=== PATIENT | female | born 1965 | race Two or more races ===

== ENCOUNTER 2019-01-28 10:04 | Emergency (ER) | payer OTHER ==
[2019-01-28 10:37] VITALS: BP 104/61; RESP 20; TEMP 98.2
[2019-01-28] MEDS ORDERED: IPRATROPIUM-ALBUTEROL 3 ML NEB INHALATION STA (11:08)
[2019-01-28] MEDS ORDERED: SODIUM CHLORIDE 0.9% 1,000 ML IV STA ×2 (11:08)
[2019-01-28] MEDS ORDERED: methylPREDNISolone SOD SUCCI 125 MG/2 ML VIAL IV STA (11:08)
--- NOTE | 2019-01-28 11:11 | ED ---
SOB HPI - General Chief Complaint: Shortness of Breath Stated Complaint: JAM Time Seen by Provider: 01/28/19 10:46 Source: patient, RN notes reviewed, old records reviewed Mode of arrival: wheelchair Limitations: no limitations - History of Present Illness Initial Comments: Patient is a 54-year-old female who presents emergency Department today with complaints of difficulty in breathing worsening cough over the past 4 days. She has history of COPD stage III. She sees a adult services librarian and misti stiles. Patient states that she's from [facility]. She is here visiting her father. Patient reports that she's had fever and chills earlier in the week. Her last hospitalization for COPD exacerbation was last year. She's not been on any recent antibiotics or steroid. Patient states that she's been using her breathing treatments and nebulizers at home with little relief. Patient states that she is a current smoker and does smoke approximately 1-2 packs a week.Patient denies any recent fever, chills, chest pain, back pain, abdominal pain, nausea vomiting, numbness or tingling, dysuria or hematuria, constipation or diarrhea, headaches or visual changes, or any other current symptoms - Related Data Home Medications Medication Instructions Recorded Confirmed ARIPiprazole [Abilify] 10 mg PO DAILY 01/28/19 01/28/19 Atorvastatin [Lipitor] 10 mg PO HS 01/28/19 01/28/19 Levothyroxine Sodium [Levoxyl] 175 mcg PO DAILY 01/28/19 01/28/19 Mirtazapine [Remeron] 7.5 mg PO HS 01/28/19 01/28/19 OXcarbazepine [Trileptal] 150 mg PO TID 01/28/19 01/28/19 QUEtiapine [SEROquel] 50 mg PO HS 01/28/19 01/28/19 Sertraline [Zoloft] 100 mg PO DAILY 01/28/19 01/28/19 Previous Rx's Medication Instructions Recorded Azithromycin [Zithromax Z-pack] 250 mg PO DIRECTED #6 tab 01/28/19 Ipratropium-Albuterol Nebulize 3 ml INHALATION QID #30 neb 01/28/19 [Duoneb 0.5 mg-3 mg/3 ml Soln] Promethazine/Dextromethorphan 5 ml PO TID #120 ml 01/28/19 [Phenergan DM Syrup] predniSONE 50 mg PO DAILY #7 tablet 01/28/19 Allergies Allergy/AdvReac Type Severity Reaction Status Date / Time No Known Allergies Allergy Verified 01/28/19 11:18 Review of Systems ROS Statement: Those systems with pertinent positive or pertinent negative responses have been documented in the HPI. ROS Other: All systems not noted in ROS Statement are negative. Past Medical History Past Medical History: Asthma, COPD, Hyperlipidemia, Thyroid Disorder Additional Past Medical History / Comment(s): EMPHYSEMA History of Any Multi-Drug Resistant Organisms: None Reported Past Surgical History: Section, Orthopedic Surgery Additional Past Surgical History / Comment(s): THYROIDECTOMY Past Psychological History: Bipolar, Schizoaffective Disorder Smoking Status: Current every day smoker Past Alcohol Use History: None Reported Past Drug Use History: Marijuana General Exam - General Exam Comments Initial Comments: 54-year-old female. Alert and oriented 3. Patient appears in no significant distress. Limitations: no limitations General appearance: alert, in no apparent distress Head exam: Present: atraumatic, normocephalic, normal inspection Eye exam: Present: normal appearance, PERRL, EOMI. Absent: scleral icterus, conjunctival injection, periorbital swelling ENT exam: Present: normal exam, mucous membranes moist Neck exam: Absent: normal inspection, tenderness, meningismus, lymphadenopathy Respiratory exam: Present: wheezes. Absent: normal lung sounds bilaterally, respiratory distress, rales, rhonchi, stridor Cardiovascular Exam: Present: regular rate, normal rhythm, normal heart sounds. Absent: systolic murmur, diastolic murmur, rubs, gallop, clicks GI/Abdominal exam: Present: soft, normal bowel sounds. Absent: distended, tenderness, guarding, rebound, rigid Extremities exam: Present: normal inspection, full ROM, normal capillary refill. Absent: tenderness, pedal edema, joint swelling, calf tenderness Back exam: Present: normal inspection Neurological exam: Present: alert, oriented X3, CN II-XII intact Psychiatric exam: Present: normal affect, normal mood Skin exam: Present: warm, dry, intact, normal color. Absent: rash Course Vital Signs 01/28/19 01/28/19 01/28/19 10:34 11:13 11:25 Temperature 98.2 F Pulse Rate 73 71 70 Respiratory 20 Rate Blood Pressure 104/61 O2 Sat by Pulse 96 Oximetry Medical Decision Making - Medical Decision Making Patient is a 54-year-old female presents today with cough congestion 4 days. She has a history of COPD. She rested much more with acute COPD exacerbation. Wheezing noted on all lung kirk. She is given double DuoNeb treatment. Some IV steroids and given a gram of Rocephin. At this time patient's chest x-ray is normal. Lab work is otherwise unremarkable. EKG is shows no acute changes. Patient at this time will be treated for acute exacerbation discharged with steroids and azithromycin. Discussed close follow-up with PCP. - Lab Data Result diagrams: 01/28/19 11:48 01/28/19 11:48 Lab Results 01/28/19 01/28/19 01/28/19 Range/Units 11:48 11:48 11:48 WBC 5.2 (3.8-10.6) k/uL RBC 4.09 (3.80-5.40) m/uL Hgb 12.9 (11.4-16.0) gm/dL Hct 38.6 (34.0-46.0) % MCV 94.4 (80.0-100.0) fL MCH 31.5 (25.0-35.0) pg MCHC 33.4 (31.0-37.0) g/dL RDW 13.2 (11.5-15.5) % Plt Count 167 (150-450) k/uL Neutrophils % 63 % Lymphocytes % 25 % Monocytes % 7 % Eosinophils % 1 % Basophils % 1 % Neutrophils # 3.3 (1.3-7.7) k/uL Lymphocytes # 1.3 (1.0-4.8) k/uL Monocytes # 0.4 (0-1.0) k/uL Eosinophils # 0.1 (0-0.7) k/uL Basophils # 0.0 (0-0.2) k/uL PT 10.2 (9.0-12.0) sec INR 0.9 (<1.2) APTT 23.6 (22.0-30.0) sec Sodium 134 L (137-145) mmol/L Potassium 3.4 L (3.5-5.1) mmol/L Chloride 99 (98-107) mmol/L Carbon Dioxide 27 (22-30) mmol/L Anion Gap 8 mmol/L BUN 6 L (7-17) mg/dL Creatinine 0.62 (0.52-1.04) mg/dL Est GFR (CKD-EPI)AfAm >90 (>60 ml/min/1.73 sqM) Est GFR (CKD-EPI)NonAf >90 (>60 ml/min/1.73 sqM) Glucose 116 H (74-99) mg/dL Calcium 9.0 (8.4-10.2) mg/dL Magnesium 1.7 (1.6-2.3) mg/dL Total Bilirubin 0.5 (0.2-1.3) mg/dL AST 21 (14-36) U/L ALT 31 (9-52) U/L Alkaline Phosphatase 87 (38-126) U/L Total Protein 6.6 (6.3-8.2) g/dL Albumin 3.8 (3.5-5.0) g/dL 01/28/19 12:40EKG shows sinus rhythm with sinus arrhythmia, low voltage QRS. A low borderline EKG. Ventricularly of 82 bpm TX interval is 146 ms. QRS ration 72 ms. QT QTC 394/460 ms. - Radiology Data Radiology results: report reviewed EKG shows sinus rhythm with sinus arrhythmia, low voltage QRS. A low borderline EKG. Ventricularly of 82 bpm TX interval is 146 ms. QRS ration 72 ms. QT QTC 394/460 ms. Nose T process chest x-rays negative for any acute process. Prominent lung volumes suggests COPD. Evidence of probable posterior right ninth and O fifth rib fractures with healing. Disposition Clinical Impression: COPD exacerbation Disposition: HOME SELF-CARE Condition: Good Instructions (If sedation given, give patient instructions): Bronchospasm (ED) Additional Instructions: Patient advised to use inhalers as directed. Use nebulizer treatments as well. Follow-up with your primary care physician. Take the antibiotic and steroid as prescribed. Return to emergency department if any alarming signs or symptoms occur. Prescriptions: Azithromycin [Zithromax Z-pack] 250 mg PO DIRECTED #6 tab Ipratropium-Albuterol Nebulize [Duoneb 0.5 mg-3 mg/3 ml Soln] 3 ml INHALATION QID #30 neb predniSONE 50 mg PO DAILY #7 tablet Promethazine/Dextromethorphan [Phenergan DM Syrup] 5 ml PO TID #120 ml Is patient prescribed a controlled substance at d/c from ED?: No Referrals: Jairo Desouza MD [Primary Care Provider] - 1-2 days Time of Disposition: 12:43
[2019-01-28 12:08] LABS: Basophils % (A) 1 %; Eosinophils # (A) 0.1 k/uL (0-0.7); Eosinophils % (A) 1 %; HCT 38.6 % (34.0-46.0); HGB 12.9 gm/dL (11.4-16.0); Lymphocytes # (A) 1.3 k/uL (1.0-4.8); Lymphocytes % (A) 25 %; MCH 31.5 pg (25.0-35.0); MCHC 33.4 g/dL (31.0-37.0); MCV 94.4 fL (80.0-100.0); Mean Platelet Volume 7.6; Monocytes # (A) 0.4 k/uL (0-1.0); Monocytes % (A) 7 %; Neutrophils # (A) 3.3 k/uL (1.3-7.7); Neutrophils % (A) 63 %; Platelet Count 167 k/uL (150-450); RBC 4.09 m/uL (3.80-5.40); RDW 13.2 % (11.5-15.5); WBC 5.2 k/uL (3.8-10.6)
[2019-01-28 12:11] LABS: INR 0.9 (<1.2); Partial Thromboplastin Time 23.6 sec (22.0-30.0); Prothrombin Time 10.2 sec (9.0-12.0)
--- NOTE | 2019-01-28 12:12 | XR ---
EXAMINATION TYPE: XR chest 2V DATE OF EXAM: 01/28/2019 COMPARISON: NONE HISTORY: Difficulty breathing, shortness of breath TECHNIQUE: Frontal and lateral views of the chest are obtained. FINDINGS: There is no focal air space opacity, pleural effusion, or pneumothorax seen. The cardiac silhouette size is within normal limits. There are prominent lung volumes suggesting underlying COPD . The osseous structures are remarkable for probable posterior right ninth and 10th, left fifth rib f ractures with healing. IMPRESSION: No acute cardiopulmonary process.
[2019-01-28 12:13] LABS: ALT 31 U/L (9-52); AST 21 U/L (14-36); Albumin 3.8 g/dL (3.5-5.0); Alkaline Phosphatase 87 U/L (38-126); Anion Gap 8 mmol/L; Blood Urea Nitrogen 6 mg/dL (7-17); Carbon Dioxide 27 mmol/L (22-30); Chloride 99 mmol/L (98-107); Glucose 116 mg/dL (74-99); Magnesium 1.7 mg/dL (1.6-2.3); Potassium 3.4 mmol/L (3.5-5.1); Sodium 134 mmol/L (137-145); Total Bilirubin 0.5 mg/dL (0.2-1.3); Total Protein 6.6 g/dL (6.3-8.2)
[2019-01-28 12:19] VITALS: PULSE 70
[2019-01-28] MEDS ORDERED: PROMETHAZ-COD 6.25-10 MG/5 ML 5 ML CUP PO STA (12:42)
== END 2019-01-28 13:21 | disposition home or self-care (01) ==
LOC: EC 10:04
DX: J44.1 Chronic obstructive pulmonary disease with (acute) exacerbation (principal); I49.8 Other specified cardiac arrhythmias; E78.5 Hyperlipidemia, unspecified; E07.9 Disorder of thyroid, unspecified; F31.9 Bipolar disorder, unspecified; F25.9 Schizoaffective disorder, unspecified; F17.210 Nicotine dependence, cigarettes, uncomplicated; Z79.890 Hormone replacement therapy; Z79.899 Other long term (current) drug therapy
CPT/HCPCS: 99285; 96365; 96375; 96361; 36415; 94640; 93005; 80053; 83735; 85025; 85610; 85730; 71046; J2930; J0696

== ENCOUNTER 2019-01-31 13:40 | Emergency (ER) | payer OTHER ==
[2019-01-31 13:45] VITALS: TEMP 97.8
[2019-01-31] MEDS ORDERED: methylPREDNISolone SOD SUCCI 125 MG/2 ML VIAL IV STA (14:03)
[2019-01-31] MEDS ORDERED: IPRATROPIUM-ALBUTEROL 3 ML NEB INHALATION STA (14:03)
[2019-01-31] MEDS ORDERED: SODIUM CHLORIDE 0.9% 1,000 ML IV STA ×2 (14:03)
--- NOTE | 2019-01-31 14:05 | ED ---
URI HPI - General Chief Complaint: Upper Respiratory Infection Stated Complaint: Sob Time Seen by Provider: 01/31/19 13:50 Source: patient, RN notes reviewed, old records reviewed Mode of arrival: ambulatory Limitations: no limitations - History of Present Illness Initial Comments: Patient is a 54-year-old female presenting to the emergency department today with complaints of worsening difficulty breathing. I saw this Patient 3 days ago for complaints of COPD exacerbation. She was discharged at that time with steroids and antibiotics. She reports she has 1 day left of medications. Patient states that she has had worsening cough at night. She denies any other symptoms. - Related Data Home Medications Medication Instructions Recorded Confirmed ARIPiprazole [Abilify] 10 mg PO DAILY 01/28/19 01/28/19 Atorvastatin [Lipitor] 10 mg PO HS 01/28/19 01/28/19 Levothyroxine Sodium [Levoxyl] 175 mcg PO DAILY 01/28/19 01/28/19 Mirtazapine [Remeron] 7.5 mg PO HS 01/28/19 01/28/19 OXcarbazepine [Trileptal] 150 mg PO TID 01/28/19 01/28/19 QUEtiapine [SEROquel] 50 mg PO HS 01/28/19 01/28/19 Sertraline [Zoloft] 100 mg PO DAILY 01/28/19 01/28/19 Previous Rx's Medication Instructions Recorded Azithromycin [Zithromax Z-pack] 250 mg PO DIRECTED #6 tab 01/28/19 Ipratropium-Albuterol Nebulize 3 ml INHALATION QID #30 neb 01/28/19 [Duoneb 0.5 mg-3 mg/3 ml Soln] Promethazine/Dextromethorphan 5 ml PO TID #120 ml 01/28/19 [Phenergan DM Syrup] predniSONE 50 mg PO DAILY #7 tablet 01/28/19 Ipratropium-Albuterol Nebulize 3 ml INHALATION QID #20 neb 01/31/19 [Duoneb 0.5 mg-3 mg/3 ml Soln] Promethazine/Dextromethorphan 5 ml PO TID #120 ml 01/31/19 [Phenergan DM Syrup] predniSONE 50 mg PO DAILY #5 tablet 01/31/19 Allergies Allergy/AdvReac Type Severity Reaction Status Date / Time No Known Allergies Allergy Verified 01/31/19 13:43 Review of Systems ROS Statement: Those systems with pertinent positive or pertinent negative responses have been documented in the HPI. ROS Other: All systems not noted in ROS Statement are negative. Past Medical History Past Medical History: Asthma, COPD, Hyperlipidemia, Thyroid Disorder Additional Past Medical History / Comment(s): EMPHYSEMA History of Any Multi-Drug Resistant Organisms: None Reported Past Surgical History: Section, Orthopedic Surgery Additional Past Surgical History / Comment(s): THYROIDECTOMY Past Psychological History: Bipolar, Schizoaffective Disorder Smoking Status: Current every day smoker Past Alcohol Use History: None Reported Past Drug Use History: Marijuana General Exam - General Exam Comments Initial Comments: 54 year old female, no distress. Limitations: no limitations General appearance: alert, in no apparent distress Head exam: Present: atraumatic, normocephalic, normal inspection Eye exam: Present: normal appearance, PERRL, EOMI. Absent: scleral icterus, conjunctival injection, periorbital swelling ENT exam: Present: normal exam, mucous membranes moist Neck exam: Present: normal inspection. Absent: tenderness, meningismus, lymphadenopathy Respiratory exam: Present: normal lung sounds bilaterally, other (minimal wheezing, improved from previous visit. ). Absent: respiratory distress, wheezes, rales, rhonchi, stridor Cardiovascular Exam: Present: regular rate, normal rhythm, normal heart sounds. Absent: systolic murmur, diastolic murmur, rubs, gallop, clicks GI/Abdominal exam: Present: soft, normal bowel sounds. Absent: distended, tenderness, guarding, rebound, rigid Extremities exam: Present: normal inspection, full ROM, normal capillary refill. Absent: tenderness, pedal edema, joint swelling, calf tenderness Back exam: Present: normal inspection Neurological exam: Present: alert, oriented X3, CN II-XII intact Psychiatric exam: Present: normal affect, normal mood Skin exam: Present: warm, dry, intact, normal color. Absent: rash Course Vital Signs 01/31/19 01/31/19 01/31/19 13:43 14:12 14:21 Temperature 97.8 F Pulse Rate 80 83 87 Respiratory 18 Rate Blood Pressure 111/70 O2 Sat by Pulse 92 L Oximetry 01/31/19 01/31/19 14:29 15:18 Temperature Pulse Rate 67 Respiratory 20 18 Rate Blood Pressure 106/74 O2 Sat by Pulse 97 Oximetry Medical Decision Making - Medical Decision Making 54 year old female presents with cough. She was recently treated for COPD with 4 days of Azithromycin, and steroids. She is much improved from previous visit, Pulse Ox 98 percent on Room air. She states she is out of cough syrup and one more day of Azithromycin. Labs today are unremarkable. She was givne douneb for minimal wheezing. She has stable CXR. Discussed normal vital signs and clinical improcement patient can finish treatment outpatiently with steriods and breathing treatment. Will write for more cough syrup. Discussed close follow up with PCP. - Lab Data Result diagrams: 01/31/19 14:25 01/31/19 14:25 Lab Results 01/31/19 01/31/19 01/31/19 Range/Units 14:25 14:25 14:25 WBC 8.2 (3.8-10.6) k/uL RBC 4.03 (3.80-5.40) m/uL Hgb 12.7 (11.4-16.0) gm/dL Hct 37.7 (34.0-46.0) % MCV 93.7 (80.0-100.0) fL MCH 31.6 (25.0-35.0) pg MCHC 33.7 (31.0-37.0) g/dL RDW 13.3 (11.5-15.5) % Plt Count 230 (150-450) k/uL Neutrophils % 57 % Lymphocytes % 30 % Monocytes % 7 % Eosinophils % 1 % Basophils % 0 % Neutrophils # 4.7 (1.3-7.7) k/uL Lymphocytes # 2.5 (1.0-4.8) k/uL Monocytes # 0.6 (0-1.0) k/uL Eosinophils # 0.1 (0-0.7) k/uL Basophils # 0.0 (0-0.2) k/uL PT 10.4 (9.0-12.0) sec INR 1.0 (<1.2) APTT 19.7 L (22.0-30.0) sec Sodium 135 L (137-145) mmol/L Potassium 3.5 (3.5-5.1) mmol/L Chloride 100 (98-107) mmol/L Carbon Dioxide 27 (22-30) mmol/L Anion Gap 8 mmol/L BUN 6 L (7-17) mg/dL Creatinine 0.60 (0.52-1.04) mg/dL Est GFR (CKD-EPI)AfAm >90 (>60 ml/min/1.73 sqM) Est GFR (CKD-EPI)NonAf >90 (>60 ml/min/1.73 sqM) Glucose 94 (74-99) mg/dL Calcium 9.2 (8.4-10.2) mg/dL Total Bilirubin 0.5 (0.2-1.3) mg/dL AST 25 (14-36) U/L ALT 31 (9-52) U/L Alkaline Phosphatase 77 (38-126) U/L Total Protein 6.6 (6.3-8.2) g/dL Albumin 3.7 (3.5-5.0) g/dL 01/31/19 14:45 EKG shows normal sinus rhythm. Ventricular rate 66 bpm. MN interval 124 ms. QRS duration is 74 ms. QT QTc is 432/452 ms. - Radiology Data Radiology results: report reviewed COPD, no acute cardiopulmonar changes. No changes from previous XR. Disposition Clinical Impression: COPD exacerbation Disposition: HOME SELF-CARE Condition: Good Instructions (If sedation given, give patient instructions): Chronic Bronchitis (ED) Additional Instructions: Patient advised of close follow-up with pulmonology and primary care physician. Return to the emergency department if any alarming signs or symptoms occur. Prescriptions: Ipratropium-Albuterol Nebulize [Duoneb 0.5 mg-3 mg/3 ml Soln] 3 ml INHALATION QID #20 neb predniSONE 50 mg PO DAILY #5 tablet Promethazine/Dextromethorphan [Phenergan DM Syrup] 5 ml PO TID #120 ml Is patient prescribed a controlled substance at d/c from ED?: No Referrals: Jairo Desouza MD [Primary Care Provider] - 1-2 days Time of Disposition: 15:43
--- NOTE | 2019-01-31 14:53 | XR ---
EXAMINATION TYPE: XR chest 2V DATE OF EXAM: 01/31/2019 COMPARISON: 01/28/2019 HISTORY: Cough TECHNIQUE: Frontal and lateral views of the chest are obtained. FINDINGS: Heart and mediastinum are normal. There is pulmonary hyperinflation and slight flattening of the diaphragm. There are no hilar masses. Bony thorax is intact. There is old right-sided healed r ib fractures. IMPRESSION: COPD. No active cardiopulmonary disease. No change.
[2019-01-31 15:01] LABS: ALT 31 U/L (9-52); AST 25 U/L (14-36); Albumin 3.7 g/dL (3.5-5.0); Alkaline Phosphatase 77 U/L (38-126); Anion Gap 8 mmol/L; Blood Urea Nitrogen 6 mg/dL (7-17); Calcium 9.2 mg/dL (8.4-10.2); Carbon Dioxide 27 mmol/L (22-30); Chloride 100 mmol/L (98-107); Glucose 94 mg/dL (74-99); Sodium 135 mmol/L (137-145); Total Bilirubin 0.5 mg/dL (0.2-1.3); Total Protein 6.6 g/dL (6.3-8.2)
[2019-01-31 15:05] LABS: Potassium 3.5 mmol/L (3.5-5.1)
[2019-01-31] MEDS ORDERED: PROMETHAZ-COD 6.25-10 MG/5 ML 5 ML CUP PO STA (15:13)
[2019-01-31 15:20] VITALS: BP 106/74; PULSE 67; RESP 18
[2019-01-31 15:26] LABS: Basophils % (A) 0 %; Eosinophils # (A) 0.1 k/uL (0-0.7); Eosinophils % (A) 1 %; HCT 37.7 % (34.0-46.0); HGB 12.7 gm/dL (11.4-16.0); Lymphocytes # (A) 2.5 k/uL (1.0-4.8); Lymphocytes % (A) 30 %; MCH 31.6 pg (25.0-35.0); MCHC 33.7 g/dL (31.0-37.0); MCV 93.7 fL (80.0-100.0); Mean Platelet Volume 7.8; Monocytes # (A) 0.6 k/uL (0-1.0); Monocytes % (A) 7 %; Neutrophils # (A) 4.7 k/uL (1.3-7.7); Neutrophils % (A) 57 %; Platelet Count 230 k/uL (150-450); RBC 4.03 m/uL (3.80-5.40); RDW 13.3 % (11.5-15.5); WBC 8.2 k/uL (3.8-10.6)
[2019-01-31 15:42] LABS: Partial Thromboplastin Time 19.7 sec (22.0-30.0); Prothrombin Time 10.4 sec (9.0-12.0)
== END 2019-01-31 15:54 | disposition home or self-care (01) ==
LOC: EC 13:40
DX: J44.1 Chronic obstructive pulmonary disease with (acute) exacerbation (principal); E78.5 Hyperlipidemia, unspecified; E07.9 Disorder of thyroid, unspecified; F31.9 Bipolar disorder, unspecified; F25.9 Schizoaffective disorder, unspecified; F17.200 Nicotine dependence, unspecified, uncomplicated; Z79.890 Hormone replacement therapy; Z79.899 Other long term (current) drug therapy
CPT/HCPCS: 36415; 94640; 93005; 80053; 85025; 85610; 85730; 71046; 99285; 96374; 96361; J2930

== ENCOUNTER → 2019-08-26 | Outpatient (CLI) | payer OTHER ==
--- NOTE | 2019-08-26 11:56 | XR ---
EXAMINATION TYPE: XR chest 2V DATE OF EXAM: 08/26/2019 COMPARISON: 01/31/2019 HISTORY: COPD. TECHNIQUE: Frontal and lateral views of the chest are obtained. FINDINGS: There is no focal air space opacity, pleural effusion, or pneumothorax seen. Pulmonary hyp erinflation and flattening of the diaphragms are seen with chronic pleural reaction at the costophren ic angles. The cardiac silhouette size is within normal limits. No acute osseous pathology. [place] right rib fractures are noted. IMPRESSION: No acute cardiopulmonary process. Redemonstration of sequela of COPD.
== END | disposition home or self-care (01) ==
LOC: RADXRMAIN 10:54
PROVIDERS: ATTEND Family Medicine
DX: J44.9 Chronic obstructive pulmonary disease, unspecified (principal)
CPT/HCPCS: 71046

== ENCOUNTER 2020-04-04 10:19 | Observation (INO) | payer OTHER ==
[2020-04-04] MEDS ORDERED: methylPREDNISolone SOD SUCCI 125 MG/2 ML VIAL IV STA (12:38)
[2020-04-04] MEDS ORDERED: IPRATROPIUM-ALBUTEROL 3 ML NEB INHALATION PRN (12:38)
[2020-04-04 13:09] LABS: Basophils # (A) 0.1 k/uL (0-0.2); Basophils % (A) 1 %; Eosinophils # (A) 0.1 k/uL (0-0.7); Eosinophils % (A) 2 %; HCT 39.7 % (34.0-46.0); HGB 13.1 gm/dL (11.4-16.0); Lymphocytes # (A) 1.7 k/uL (1.0-4.8); Lymphocytes % (A) 33 %; Mean Platelet Volume 7.1; Monocytes # (A) 0.2 k/uL (0-1.0); Monocytes % (A) 4 %; Neutrophils # (A) 2.9 k/uL (1.3-7.7); Neutrophils % (A) 57 %; Platelet Count 215 k/uL (150-450); RBC 3.97 m/uL (3.80-5.40); RDW 13.2 % (11.5-15.5)
[2020-04-04 14:22] LABS: Basophils # (A) 0.1 k/uL (0-0.2); Basophils % (A) 2 %; Eosinophils # (A) 0.1 k/uL (0-0.7); Eosinophils % (A) 2 %; HCT 37.4 % (34.0-46.0); HGB 12.1 gm/dL (11.4-16.0); Lymphocytes # (A) 1.8 k/uL (1.0-4.8); Lymphocytes % (A) 33 %; MCH 32.3 pg (25.0-35.0); MCHC 32.4 g/dL (31.0-37.0); MCV 99.6 fL (80.0-100.0); Mean Platelet Volume 7.2; Monocytes # (A) 0.3 k/uL (0-1.0); Monocytes % (A) 5 %; Neutrophils # (A) 2.9 k/uL (1.3-7.7); Neutrophils % (A) 56 %; Platelet Count 206 k/uL (150-450); RBC 3.76 m/uL (3.80-5.40); RDW 13.1 % (11.5-15.5); WBC 5.3 k/uL (3.8-10.6)
--- NOTE | 2020-04-04 14:29 | P.CNPUL ---
History of Present Illness Consult date: 04/04/20 Reason for consult: dyspnea, cough, COPD Chief complaint: Shortness of breath and cough progressive for the last 10 days History of present illness: This is a 55-year-old female with the past medical history of COPD, patient is still smoking a quarter to half pack per day, she has extensive history of smoking and nicotine use in the past, she has also problems associated with depression and mood disorder chronic pain syndrome and hypothyroidism for last 10 days she is having increasing shortness of breath and dry nonproductive cough with that she has been evaluated by primary care provider due to nonresponse of treatment on outpatient basis patient has been admitted into the hospital she has IV steroids along with bronchodilators and oral antibiotics as started, labs and chest x-rays are pending, she has prior history of thyroidectomy and chronic hoarseness afterwards Review of Systems All systems: negative Past Medical History Past Medical History: Asthma, COPD, Hyperlipidemia, Thyroid Disorder Additional Past Medical History / Comment(s): EMPHYSEMA History of Any Multi-Drug Resistant Organisms: None Reported Past Surgical History: Section, Orthopedic Surgery Additional Past Surgical History / Comment(s): THYROIDECTOMY Past Anesthesia/Blood Transfusion Reactions: No Reported Reaction Past Psychological History: Bipolar, Schizoaffective Disorder Smoking Status: Current every day smoker Past Alcohol Use History: None Reported Past Drug Use History: Marijuana - Past Family History Father Family Medical History: No Reported History Medications and Allergies Home Medications Medication Instructions Recorded Confirmed Type ARIPiprazole [Abilify] 10 mg PO DAILY 01/28/19 01/28/19 History Atorvastatin [Lipitor] 10 mg PO HS 01/28/19 01/28/19 History Azithromycin [Zithromax Z-pack] 250 mg PO DIRECTED #6 tab 01/28/19 Rx Ipratropium-Albuterol Nebulize 3 ml INHALATION QID #30 neb 01/28/19 Rx [Duoneb 0.5 mg-3 mg/3 ml Soln] Levothyroxine Sodium [Levoxyl] 175 mcg PO DAILY 01/28/19 01/28/19 History Mirtazapine [Remeron] 7.5 mg PO HS 01/28/19 01/28/19 History OXcarbazepine [Trileptal] 150 mg PO TID 01/28/19 01/28/19 History Promethazine/Dextromethorphan 5 ml PO TID #120 ml 01/28/19 Rx [Phenergan DM Syrup] QUEtiapine [SEROquel] 50 mg PO HS 01/28/19 01/28/19 History Sertraline [Zoloft] 100 mg PO DAILY 01/28/19 01/28/19 History predniSONE 50 mg PO DAILY #7 tablet 01/28/19 Rx Ipratropium-Albuterol Nebulize 3 ml INHALATION QID #20 neb 01/31/19 Rx [Duoneb 0.5 mg-3 mg/3 ml Soln] Promethazine/Dextromethorphan 5 ml PO TID #120 ml 01/31/19 Rx [Phenergan DM Syrup] predniSONE 50 mg PO DAILY #5 tablet 01/31/19 Rx Allergies Allergy/AdvReac Type Severity Reaction Status Date / Time No Known Allergies Allergy Verified 01/31/19 13:43 Physical Exam Vitals: Vital Signs Temp Pulse Resp BP Pulse Ox 04/04/20 12:52 98.0 F 78 18 95/63 96 04/04/20 12:20 18 Intake and Output 04/03/20 04/04/20 04/04/20 22:59 06:59 14:59 Other: Weight 42.836 kg - Constitutional General appearance: average body habitus, cooperative, disheveled - EENT Eyes: EOMI, PERRLA ENT: hearing grossly normal Ears: bilateral: normal - Neck Neck: normal ROM Carotids: bilateral: upstroke normal Thyroid: bilateral: normal size - Respiratory Respiratory: bilateral: diminished, wheezing (Fine on fours expiration) - Cardiovascular Rhythm: regular Heart sounds: normal: S1, S2 - Gastrointestinal General gastrointestinal: normal bowel sounds - Integumentary Integumentary: normal - Neurologic Neurologic: CNII-XII intact - Musculoskeletal Musculoskeletal: gait normal, generalized weakness, strength equal bilaterally - Psychiatric Psychiatric: A&O x's 3, appropriate affect, intact judgment & insight Results - Laboratory Findings CBC and BMP: 04/04/20 14:08 Abnormal lab findings: Abnormal Labs 04/04/20 14:08 RBC 3.76 L - Diagnostic Findings Chest x-ray: pending Assessment and Plan Assessment: Acute COPD exacerbation Tracheobronchitis Hypothyroidism Dyslipidemia Major depression Generalized anxiety disorder Plan: Agree with bronchodilators and steroids, once x-rays done and we'll review it patient has been consult educated about smoking cessation further recommendati ons pending plan of care as per clinical response of patient Time with Patient: Greater than 30
[2020-04-04 14:37] LABS: ALT 17 U/L (4-34); AST 21 U/L (14-36); African American GFR (CKD) >90 (>60 ml/min/1.73 sqM); Alkaline Phosphatase 64 U/L (38-126); Anion Gap 8 mmol/L; Blood Urea Nitrogen 8 mg/dL (7-17); Calcium 8.9 mg/dL (8.4-10.2); Carbon Dioxide 28 mmol/L (22-30); Chloride 94 mmol/L (98-107); Glucose 115 mg/dL (74-99); Non-African American GFR(CKD) >90 (>60 ml/min/1.73 sqM); Potassium 3.7 mmol/L (3.5-5.1); Sodium 130 mmol/L (137-145); Total Bilirubin 0.3 mg/dL (0.2-1.3); Total Protein 6.4 g/dL (6.3-8.2)
--- NOTE | 2020-04-04 15:12 | XR ---
EXAMINATION TYPE: XR chest 2V DATE OF EXAM: 04/04/2020 COMPARISON: Chest x-ray August 26, 2019 and older x-rays. HISTORY: COPD exacerbation and cough. TECHNIQUE: Frontal and lateral views of the chest are obtained. FINDINGS: Perhaps mild underlying emphysematous change redemonstrated. There is no focal air space op acity, pleural effusion, or pneumothorax seen. The cardiac silhouette size is within normal limits. The osseous structures are intact. IMPRESSION: No new acute pulmonary process. No significant change from prior studies.
[2020-04-04] MEDS: PANTOPRAZOLE 40 MG/10 ML VIAL IVP SCH (15:25)
[2020-04-04] MEDS: AZITHROMYCIN 500 MG in SODIUM CHLORIDE 0.9% 250 ML IVPB SCH (15:26)
[2020-04-04] MEDS: SODIUM CHLORIDE 0.9% 1,000 ML IV SCH (15:26)
[2020-04-04] MEDS: IPRATROPIUM-ALBUTEROL 3 ML NEB INHALATION SCH ×2 (16:18→19:50)
[2020-04-04] MEDS: INSULIN ASPART (NovoLOG) 100 UNIT/ML VIAL SQ SCH ×2 (18:09→20:54)
[2020-04-04] MEDS: methylPREDNISolone SOD SUCCI 125 MG/2 ML VIAL IV SCH (18:13)
[2020-04-04] MEDS: NICOTINE 21MG/24HR PATCH TRANSDERM SCH (18:13)
[2020-04-04] MEDS: SYMBICORT 160-4.5 MCG INHALER INHALATION SCH (19:50)
[2020-04-04 20:24] VITALS: TEMP 97.5
[2020-04-04 20:33] LABS: Glucose,Whole Blood 150 mg/dL (75-99)
[2020-04-04] MEDS ORDERED: ALPRAZolam 0.5 MG TAB PO PRN (20:50)
[2020-04-04] MEDS ORDERED: MIRTAZAPINE 15 MG TAB PO SCH (21:00)
[2020-04-04] MEDS ORDERED: QUEtiapine 50 MG TAB PO SCH (21:00)
[2020-04-04] MEDS ORDERED: traZODone HCL 50 MG TAB PO SCH (21:00)
[2020-04-04] MEDS: GABAPENTIN 300 MG CAP PO SCH (21:41)
[2020-04-04] MEDS: OXcarbazepine 150 MG TAB PO SCH (21:46)
[2020-04-05] MEDS: methylPREDNISolone SOD SUCCI 125 MG/2 ML VIAL IV SCH ×2 (00:15→05:18)
[2020-04-05] MEDS ORDERED: ACETAMINOPHEN TAB 325 MG TAB PO STA (03:04)
[2020-04-05] MEDS: SYMBICORT 160-4.5 MCG INHALER INHALATION SCH ×2 (03:41→09:08)
[2020-04-05] MEDS: SODIUM CHLORIDE 0.9% 1,000 ML IV SCH (05:20)
[2020-04-05 06:55] LABS: Glucose,Whole Blood 184 mg/dL (75-99)
[2020-04-05] MEDS ORDERED: ALBUTEROL HFA INHALER INHALATION PRN (07:10)
[2020-04-05 07:25] LABS: ALT 19 U/L (4-34); AST 22 U/L (14-36); African American GFR (CKD) >90 (>60 ml/min/1.73 sqM); Alkaline Phosphatase 63 U/L (38-126); Anion Gap 8 mmol/L; Basophils % (A) 0 %; Blood Urea Nitrogen 8 mg/dL (7-17); Calcium 9.1 mg/dL (8.4-10.2); Carbon Dioxide 28 mmol/L (22-30); Chloride 94 mmol/L (98-107); Eosinophils % (A) 0 %; Glucose 175 mg/dL (74-99); HCT 40.2 % (34.0-46.0); HGB 12.5 gm/dL (11.4-16.0); Lymphocytes # (A) 0.6 k/uL (1.0-4.8); Lymphocytes % (A) 13 %; MCH 31.2 pg (25.0-35.0); MCHC 31.2 g/dL (31.0-37.0); MCV 99.8 fL (80.0-100.0); Mean Platelet Volume 7.5; Monocytes # (A) 0.1 k/uL (0-1.0); Monocytes % (A) 2 %; Neutrophils # (A) 4.1 k/uL (1.3-7.7); Neutrophils % (A) 85 %; Non-African American GFR(CKD) >90 (>60 ml/min/1.73 sqM); Platelet Count 215 k/uL (150-450); Potassium 4.7 mmol/L (3.5-5.1); RBC 4.02 m/uL (3.80-5.40); RDW 13.1 % (11.5-15.5); Sodium 130 mmol/L (137-145); Total Bilirubin 0.2 mg/dL (0.2-1.3); Total Protein 6.6 g/dL (6.3-8.2); WBC 4.8 k/uL (3.8-10.6)
[2020-04-05] MEDS: INSULIN ASPART (NovoLOG) 100 UNIT/ML VIAL SQ SCH ×2 (07:27→15:21)
[2020-04-05] MEDS ORDERED: ALBUTEROL SULFATE INHALATION SCH (08:00)
[2020-04-05] MEDS ORDERED: SYMBICORT 160-4.5 MCG INHALER INHALATION SCH (08:00)
[2020-04-05] MEDS: GABAPENTIN 300 MG CAP PO SCH (08:05)
[2020-04-05] MEDS: NICOTINE 21MG/24HR PATCH TRANSDERM SCH (08:05)
[2020-04-05] MEDS: PANTOPRAZOLE 40 MG/10 ML VIAL IVP SCH (08:05)
[2020-04-05] MEDS: OXcarbazepine 150 MG TAB PO SCH (08:06)
[2020-04-05] MEDS ORDERED: ALPRAZolam 0.5 MG TAB PO PRN (08:16)
[2020-04-05 08:35] VITALS: BP 118/72; RESP 17
[2020-04-05] MEDS: AZITHROMYCIN 500 MG in SODIUM CHLORIDE 0.9% 250 ML IVPB SCH (08:50)
[2020-04-05] MEDS ORDERED: LEVOTHYROXINE 75 MCG TAB PO SCH (09:00)
[2020-04-05] MEDS ORDERED: ARIPiprazole 10 MG TAB PO SCH (09:00)
[2020-04-05] MEDS ORDERED: SERTRALINE 100 MG TAB PO SCH (09:00)
[2020-04-05] MEDS: IPRATROPIUM-ALBUTEROL 3 ML NEB INHALATION SCH ×2 (09:08→12:05)
--- NOTE | 2020-04-05 09:18 | HP ---
HISTORY AND PHYSICAL A 55-year-old white female, history of COPD, smoking a pack a day. Came in with cough, congestion, shortness of breath, severe nonproductive cough. Response to treatment outpatient admitted for asthma exacerbation. A 14-point review of systems is negative. History of asthma, COPD, hypothyroidism, dyslipidemia. Surgery, , orthopedic surgery, thyroidectomy. Bipolar, schizoaffective. Current everyday smoker and marijuana. FAMILY HISTORY: See list. ALLERGIES: Negative. HOME MEDICINES: Duo-Neb, , azithromycin, Lipitor, Abilify, Remeron, Trileptal, Zoloft, Seroquel. A 14-point review of systems as mentioned above, negative except for mentioned in HPI, saturation low 90s on room on room air. Blood pressure is 95/63, temp 98, pulse 78. HEENT: She looks slightly disheveled. Pupils equal, round, reactive. NECK: Supple. LUNGS: Show scattered wheeze and rhonchi x4. CARDIAC: S1-S2. GI: Soft. INTEGUMENT: Normal. NEUROLOGIC: Cranial nerves are intact. MUSCULOSKELETAL: Fair range of motion. PSYCH: Fair mood and affect. ASSESSMENT: 1. Acute chronic obstructive pulmonary disease exacerbation, tracheobronchitis. 2. Hypothyroidism. 3. Dyslipidemia. 4. Major depression, bipolar, anxiety. PLAN: Updrafts, IV steroids. Smoking cessation. Pulmonary consult. MMLYNNL / VINNIE: [id number] /
[2020-04-05 10:50] VITALS: BMI 16.5
[2020-04-05 12:18] VITALS: PULSE 78
[2020-04-05 12:55] LABS: Glucose,Whole Blood 160 mg/dL (75-99)
--- NOTE | 2020-04-05 13:03 | P.DS ---
Providers Date of admission: 04/04/20 11:51 Expected date of discharge: 04/05/20 Attending physician: Jairo Desouza Consults: 04/04/20 13:55 Consult Physician Routine Consulting Provider: Richard Palomino Consult Reason/Comments: copd Do you want consulting provider notified?: Yes [facility] Course: Final Diagnoses: Acute COPD exacerbation Tracheobronchitis Hypothyroidism Dyslipidemia Major depression Generalized anxiety disorder Hospital course: This a 55-year-old female admitted with acute COPD exacerbation, tracheobronchitis, ongoing nicotine dependence and multiple other medical issues. Maintained on IV antibiotics, nebulized bronchodilators, IV steroids. Significant clinical improvement. Cleared by pulmonary for discharge. Patient is being discharged home in a stable condition with current prognosis. The impression and plan of care has been dictated as directed. : I performed a history and examination of this patient, discussed the same with the dictator. I agree with the dictator's note ,documented as a scribe. Any additional findings or plans will be noted. Patient Condition at Discharge: Stable Plan - Discharge Summary Discharge Rx Participant: No New Discharge Prescriptions: New Nicotine 21Mg/24Hr Patch [Habitrol] 1 patch TRANSDERM DAILY #30 patch predniSONE 10 mg PO DIRECTED #30 tab Azithromycin [Zithromax] 500 mg PO DAILY 5 Days #5 tab Continue QUEtiapine [SEROquel] 50 mg PO HS OXcarbazepine [Trileptal] 150 mg PO TID Mirtazapine [Remeron] 7.5 mg PO HS Atorvastatin [Lipitor] 10 mg PO HS Sertraline [Zoloft] 100 mg PO DAILY ARIPiprazole [Abilify] 10 mg PO DAILY ALPRAZolam [Xanax] 0.5 mg PO HS PRN PRN Reason: Anxiety Albuterol Inhaler [Ventolin Hfa Inhaler] 2 puff INHALATION RT-BID PRN PRN Reason: Shortness Of Breath Gabapentin 600 mg PO TID Ergocalciferol [Vitamin D2 (DRISDOL)] 50,000 unit PO Q30D traZODone HCL 150 mg PO HS Levothyroxine Sodium [Levoxyl] 150 mcg PO DAILY Albuterol Sulfate [Proair Respiclick] 1 puff INHALATION RT-TID Budesonide/Formoterol Fumarate [Symbicort 160-4.5 Mcg Inhaler] 2 puff INHALATION RT-DAILY Discharge Medication List ARIPiprazole [Abilify] 10 mg PO DAILY 01/28/19 [History] Atorvastatin [Lipitor] 10 mg PO HS 01/28/19 [History] Mirtazapine [Remeron] 7.5 mg PO HS 01/28/19 [History] OXcarbazepine [Trileptal] 150 mg PO TID 01/28/19 [History] QUEtiapine [SEROquel] 50 mg PO HS 01/28/19 [History] Sertraline [Zoloft] 100 mg PO DAILY 01/28/19 [History] ALPRAZolam [Xanax] 0.5 mg PO HS PRN 04/04/20 [History] Albuterol Inhaler [Ventolin Hfa Inhaler] 2 puff INHALATION RT-BID PRN 04/04/20 [History] Albuterol Sulfate [Proair Respiclick] 1 puff INHALATION RT-TID 04/04/20 [History] Budesonide/Formoterol Fumarate [Symbicort 160-4.5 Mcg Inhaler] 2 puff INHALATION RT-DAILY 04/04/20 [History] Ergocalciferol [Vitamin D2 (DRISDOL)] 50,000 unit PO Q30D 04/04/20 [History] Gabapentin 600 mg PO TID 04/04/20 [History] Levothyroxine Sodium [Levoxyl] 150 mcg PO DAILY 04/04/20 [History] traZODone HCL 150 mg PO HS 04/04/20 [History] Azithromycin [Zithromax] 500 mg PO DAILY 5 Days #5 tab 04/05/20 [Rx] Nicotine 21Mg/24Hr Patch [Habitrol] 1 patch TRANSDERM DAILY #30 patch 04/05/20 [Rx] predniSONE 10 mg PO DIRECTED #30 tab 04/05/20 [Rx] Follow up Appointment(s)/Referral(s): Jairo Desouza MD [Primary Care Provider] - 3 Days (Office closed at time of discharge please call April 06 in the morning before 11:15 to set up a follow up appointment) [facility], [NON-STAFF] - Richard Palomino MD [STAFF PHYSICIAN] - 05/13/20 12:00 pm (This is a telehealth appointment, please call the office with any questions on how to use this)
--- NOTE | 2020-04-05 15:01 | P.PN ---
Subjective Progress Note Date: 04/05/20 Principal diagnosis: Acute COPD exacerbation Tracheobronchitis Hypothyroidism Dyslipidemia Major depression Generalized anxiety disorder 04/05/2020, patient seen eval examined overall respiratory status remains stable does get short of breath on activity and exertion cuff congestion shortness of breath improved pain in the back is improved as well chest x-ray reviewed ove rall stable consistent with COPD-like changes no acute infiltrate identified patient is being planned for discharge later on today we will discharge planning follow-up on outpatient basis This is a 55-year-old female with the past medical history of COPD, patient is still smoking a quarter to half pack per day, she has extensive history of smoking and nicotine use in the past, she has also problems associated with depression and mood disorder chronic pain syndrome and hypothyroidism for last 1 0 days she is having increasing shortness of breath and dry nonproductive cough with that she has been evaluated by primary care provider due to nonresponse of treatment on outpatient basis patient has been admitted into the hospital she has IV steroids along with bronchodilators and oral antibiotics as started, labs and chest x-rays are pending, she has prior history of thyroidectomy and chronic hoarseness afterwards Objective - Vital Signs Vital signs: Vital Signs Temp 97.5 F L 04/05/20 07:00 Pulse 78 04/05/20 12:17 Resp 17 04/05/20 07:00 BP 118/72 04/05/20 07:00 Pulse Ox 91 L 04/05/20 07:00 Intake & Output 04/04/20 04/05/20 04/05/20 18:59 06:59 18:59 Intake Total 480 Balance 480 Weight 42.836 kg 42.836 kg Intake: Oral 480 Other: Voiding Method Toilet # Voids 1 1 - Exam Constitutional General appearance: average body habitus, cooperative, disheveled - EENT Eyes: EOMI, PERRLA ENT: hearing grossly normal Ears: bilateral: normal - Neck Neck: normal ROM Carotids: bilateral: upstroke normal Thyroid: bilateral: normal size - Respiratory Respiratory: bilateral: diminished, wheezing (Fine on fours expiration) - Cardiovascular Rhythm: regular Heart sounds: normal: S1, S2 - Gastrointestinal General gastrointestinal: normal bowel sounds - Integumentary Integumentary: normal - Neurologic Neurologic: CNII-XII intact - Musculoskeletal Musculoskeletal: gait normal, generalized weakness, strength equal bilaterally - Psychiatric Psychiatric: A&O x's 3, appropriate affect, intact judgment & insight - Labs CBC & Chem 7: 04/05/20 06:31 04/05/20 06:31 Labs: Abnormal Lab Results - Last 24 Hours (Table) 04/04/20 04/05/20 04/05/20 Range/Units 20:32 06:31 06:31 Lymphocytes # 0.6 L (1.0-4.8) k/uL Sodium 130 L (137-145) mmol/L Chloride 94 L (98-107) mmol/L Glucose 175 H (74-99) mg/dL POC Glucose (mg/dL) 150 H (75-99) mg/dL 04/05/20 04/05/20 Range/Units 06:53 12:54 Lymphocytes # (1.0-4.8) k/uL Sodium (137-145) mmol/L Chloride (98-107) mmol/L Glucose (74-99) mg/dL POC Glucose (mg/dL) 184 H 160 H (75-99) mg/dL Assessment and Plan Assessment: Acute COPD exacerbation Tracheobronchitis Hypothyroidism Dyslipidemia Major depression Generalized anxiety disorder Plan: Agree with bronchodilators and steroids, can be changed to by mouth at the time of discharge follow-up in outpatient basis Time with Patient: Greater than 30
[2020-04-05] MEDS ORDERED: methylPREDNISolone SOD SUCCI 125 MG/2 ML VIAL IV SCH (16:00)
[2020-04-05] MEDS ORDERED: ATORVASTATIN 10 MG TAB PO SCH (21:00)
[2020-04-27] MEDS ORDERED: ERGOCALCIFEROL 50,000 UNIT CAP PO SCH (09:00)
== END 2020-04-05 14:38 | disposition home or self-care (01) ==
LOC: INTOOBSV 11:51 → 4SSUR 11:51 → UNDODISIN 04-05 14:38
PROVIDERS: ADMIT Family Medicine; ATTEND Family Medicine
DX: J43.9 Emphysema, unspecified (principal); J40 Bronchitis, not specified as acute or chronic; E89.0 Postprocedural hypothyroidism; E78.5 Hyperlipidemia, unspecified; F31.9 Bipolar disorder, unspecified; F41.1 Generalized anxiety disorder; F25.9 Schizoaffective disorder, unspecified; G89.4 Chronic pain syndrome; R49.0 Dysphonia; F17.210 Nicotine dependence, cigarettes, uncomplicated; Z03.818 Encounter for observation for suspected exposure to other biological agents ruled out; Z79.899 Other long term (current) drug therapy; Z79.890 Hormone replacement therapy; Z79.51 Long term (current) use of inhaled steroids; Z79.52 Long term (current) use of systemic steroids; Z79.2 Long term (current) use of antibiotics; Z98.890 Other specified postprocedural states
CPT/HCPCS: 96376 ×2; 96365; 96366 ×2; 96375; 94640 ×4; 80053 ×2; 83605; 85025 ×2; 87635; 71046; G0378 ×2; G0379; S4990 ×2; J2930 ×2; J0456 ×2; C9113 ×2

== ENCOUNTER → 2021-07-05 | Outpatient (CLI) | payer OTHER ==
--- NOTE | 2021-07-06 08:45 | CTL ---
EXAMINATION TYPE: CT Low Dose Lung DATE OF EXAM ORDERED: 07/05/2021 HISTORY: Long-term tobacco use. Lung cancer screening CT DLP: 1.[address] CTDI: 52.1 mGy Automated exposure control for dose reduction was used. SCREENING VISIT: Baseline COMPARISON: None TECHNIQUE: Low dose computed tomography scan was performed through the chest at 1 mm thick sections a nd reconstructed images in the coronal plane at [address] DIAGNOSTIC QUALITY: Satisfactory FINDINGS: LUNG NODULES: Present, detailed below: There is 4.3 x 4.1 mm posterior right upper lobe nodule axial image 38 LUNGS: COPD: Severity: Moderate Fibrosis: Severity: Mild biapical Lymph nodes: Few prominent but subcentimeter paratracheal, prevascular, and AP window lymph nodes. Other findings: None. RIGHT PLEURAL SPACE: Effusion: None Calcification: None Thickening: None Pneumothorax: None LEFT PLEURAL SPACE: Effusion: None Calcification: None Thickening: None Pneumothorax: None HEART: Heart Size: Normal Coronary calcification: Moderate three-vessel Pericardial effusion: Small OTHER FINDINGS: Upper abdomen: None Bony thorax: None Supraclavicular region: Partial visualization of asymmetry at level of piriform sinus possibly due to tilting. Some prominent but subcentimeter left supraclavicular lymph nodes. Need to further investig ate with contrast enhancement neck CT should be based on clinical correlation. Consider ENT referral. Other: None IMPRESSION: Small right upper lobe nodule. Background moderate emphysematous change. CT LUNG RAD AND CT CHEST RECOMMENDATION: Lung-Rad 2 Benign Appearance or Behavior: Continue annual sc reening with LDCT in 12 months. S Modifier (other clinically significant findings): S Attention to supraclavicular region. Moderate three-vessel coronary artery calcification, correlate w ith additional cardiac risk factors.
== END | disposition home or self-care (01) ==
LOC: RADCTMAIN 17:23
PROVIDERS: ATTEND Family Medicine
DX: R91.1 Solitary pulmonary nodule (principal); Z87.891 Personal history of nicotine dependence; J43.8 Other emphysema
CPT/HCPCS: 71271

== ENCOUNTER → 2023-01-02 | Outpatient (CLI) | payer OTHER ==
--- NOTE | 2023-01-02 12:34 | CTL ---
EXAMINATION TYPE: CT Low Dose Lung DATE OF EXAM: 01/02/2023 11:29 AM CLINICAL INDICATION:Female, 57 years old with history of Z87.891;, history of tobacco use. COMPARISON: 07/05/2021 TECHNIQUE: Multiple axial non-contrast scans were obtained from approximately the lung apices through the upper abdomen. Coronal and sagittal reformatted images were obtained. Low dose technique was uti lized. CT DLP: 36.3 mGycm, Automated exposure control for dose reduction was used. CT Contrast: Contrast used: None Oral contrast used: None FINDINGS: ======== Lack of intravenous contrast and low dose technique limits the evaluation of the vascular and soft ti ssue structures. LUNGS: Paraseptal and centrilobular emphysema changes most proximal lung apices. No evidence of focal consolidation, pneumothorax or pleural effusion. Nodules: RUL: 4 mm series 4 image 24, stable; 2 mm, image 68, stable. RML: None. RLL: None. ANAHI: None. LLL: None. AIRWAY: Patent and unremarkable. HEART: Size within normal limits. Mild atherosclerosis of the coronary arteries. Trace pericardial ef fusion. MEDIASTINUM: No gross evidence of adenopathy. VASCULATURE: No aortic aneurysm. Arthrosis course of the arterial vasculature. MUSCULOSKELETAL: No acute osseous abnormalities, remote injury to the left rib 5 which is healed. The re is a remote injury to right rib 10 there is a nonfused right rib 9 fracture. SOFT TISSUES/LYMPH NODES: Unremarkable. LOWER NECK: No significant findings. UPPER ABDOMEN: No significant findings. IMPRESSION: 1. Stable pulmonary nodules in the right upper lobe. 2. Mild to moderate emphysema. 3. Nonfused posterior right rib #9 fracture. 4. Healed fractures of left rib [address] LUNG RAD AND CT CHEST RECOMMENDATION: Lung-Rad 2 Benign Appearance or Behavior: Continue annual sc reening with LDCT in 12 months. S Modifier (other clinically significant findings): None Recommend smoking cessation (if current smoker), or continuation of smoking cessation (if prior smoke r). Annual screening for lung cancer with low-dose computed tomography is recommended in adults ages 55 to 77 years who have a 30 pack-year smoking history and currently smoke or have quit within the pa st 15 years. Screening should be discontinued once a person has not smoked for 15 years or develops a health problem that substantially limits life expectancy or the ability or willingness to have curat bandar lung surgery. Lung rads 2021 [email or web address]
== END | disposition home or self-care (01) ==
LOC: RADCTMAIN 11:04
PROVIDERS: ATTEND Family Medicine
DX: Z12.2 Encounter for screening for malignant neoplasm of respiratory organs (principal); S22.31XA Fracture of one rib, right side, initial encounter for closed fracture; J43.2 Centrilobular emphysema; F17.210 Nicotine dependence, cigarettes, uncomplicated; R91.8 Other nonspecific abnormal finding of lung field
CPT/HCPCS: 71271

== ENCOUNTER → 2023-06-05 | Outpatient (CLI) | payer OTHER ==
--- NOTE | 2023-06-05 12:10 | FL ---
EXAMINATION TYPE: FL barium swallow DATE OF EXAM: 06/05/2023 11:52 AM COMPARISON: None CLINICAL INDICATION:Female, 58 years old with history of Y84.4ASPIRATION OF FLUID CAUSE ABN REACT/COM PL, W/; PHH, TECHNIQUE: The procedure was explained and patient history elicited. All patient questions were ans wered prior to start of procedure. Multiple spot fluoroscopic images of the esophagus were obtained a fter the oral ingestion of effervescent crystals and liquid barium as the contrast agent. Fluoroscopic time: 38 seconds Fluoroscopic images: 106 Total DAP: 530.95 mGym2 FINDINGS: The esophagus demonstrates normal primary and secondary peristalsis. Some tertiary contractions were demonstrated in the supine position. The esophageal mucosa is smooth without evidence of focal strict ure, ulceration, or abnormal outpouching. 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 No hiatal hernia was demonstrated. No gastroesophageal reflux disea se was identified. IMPRESSION: 1. No evidence for focal stricture, ulceration or abnormal outpouching. 2. 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
== END | disposition home or self-care (01) ==
LOC: RADUSWWP 11:10
PROVIDERS: ATTEND Family Medicine
DX: R13.19 Other dysphagia (principal); Y84.4 Aspiration of fluid as the cause of abnormal reaction of the patient, or of later complication, without mention of misadventure at the time of the procedure
CPT/HCPCS: 74220

== ENCOUNTER → 2024-02-24 | Outpatient (CLI) | payer OTHER ==
[2024-02-24 15:51] LABS: Basophils # (A) 0.05 X 10*3/uL (0.00-0.10); Basophils % (A) 1.3 %; Eosinophils # (A) 0.06 X 10*3/uL (0.04-0.35); Eosinophils % (A) 1.6 %; HCT 41.4 % (37.2-46.3); HGB 13.9 g/dL (12.0-15.0); Lymphocytes # (A) 1.93 X 10*3/uL (0.90-5.00); Lymphocytes % (A) 50.4 %; MCH 33.7 pg (27.0-32.0); MCHC 33.6 g/dL (32.0-37.0); MCV 100.2 FL (80.0-97.0); Mean Platelet Volume 10.9 FL (9.5-12.2); Monocytes # (A) 0.26 X 10*3/uL (0.20-1.00); Monocytes % (A) 6.8 %; NRBC Per 100 WBC 0 X 10*3/uL (0.00-0.01); Neutrophils # (A) 1.52 X 10*3/uL (1.80-7.70); Neutrophils % (A) 39.6 %; Platelet Count 177 X 10*3/uL (140-440); RBC 4.13 X 10*6/uL (4.10-5.20); RDW 14.6 % (11.5-14.5); WBC 3.83 X 10*3/uL (4.50-10.00)
[2024-02-24 16:05] LABS: Erythrocyte Sedimentation Rate 7 mm/Hr (0-30)
[2024-02-24 16:24] LABS: ALT 243 U/L (8-44); AST 140 U/L (13-35); Albumin 4.9 g/dL (3.8-4.9); Albumin/Globulin Ratio 2.13 Ratio (1.60-3.17); Alkaline Phosphatase 104 U/L (41-126); Blood Urea Nitrogen 13.2 mg/dL (9.0-27.0); Calcium 10.1 mg/dL (8.7-10.3); Carbon Dioxide 34.1 mmol/L (21.6-31.8); Chloride 94 mmol/L (96-109); Globulin 2.3 g/dL (1.6-3.3); Glucose 84 mg/dL (70-110); LDL Cholesterol,Calculated 73.2 mg/dL (0.0-131.0); Potassium 4.7 mmol/L (3.5-5.5); Sodium 138 mmol/L (135-145); Total Bilirubin 0.2 mg/dL (0.3-1.2); Total Protein 7.2 g/dL (6.2-8.2); VLDL Calculation 12.78 mg/dL (5.00-40.00)
[2024-02-24 16:33] LABS: C Reactive Protein <0.30 mg/dL (0.00-0.80); T4, Free (Free Thyroxine) <0.11 ng/dL (0.80-1.80)
== END | disposition home or self-care (01) ==
LOC: LABWHC1 11:27
PROVIDERS: ATTEND Family Medicine
DX: Z00.00 Encounter for general adult medical examination without abnormal findings (principal); I10 Essential (primary) hypertension; E11.9 Type 2 diabetes mellitus without complications; Z79.899 Other long term (current) drug therapy
CPT/HCPCS: 36415; 80053; 80061; 83036; 84439; 84443; 84481; 85025; 85652; 86038; 86140

== ENCOUNTER → 2024-04-16 | Outpatient (CLI) | payer OTHER ==
[2024-04-16 19:42] LABS: T4, Free (Free Thyroxine) 3.95 ng/dL (0.80-1.80)
== END | disposition home or self-care (01) ==
LOC: LABWHC1 11:56
PROVIDERS: ATTEND Family Medicine
DX: I10 Essential (primary) hypertension (principal)
CPT/HCPCS: 36415; 84439; 84443

== ENCOUNTER → 2024-06-01 | Outpatient (CLI) | payer OTHER ==
[2024-06-01 18:41] LABS: HCT 42.3 % (37.2-46.3); HGB 13.7 g/dL (12.0-15.0); MCH 32.2 pg (27.0-32.0); MCHC 32.4 g/dL (32.0-37.0); MCV 99.5 FL (80.0-97.0); Mean Platelet Volume 10.8 FL (9.5-12.2); NRBC Per 100 WBC 0 X 10*3/uL (0.00-0.01); Platelet Count 226 X 10*3/uL (140-440); RBC 4.25 X 10*6/uL (4.10-5.20); RDW 13.4 % (11.5-14.5)
[2024-06-01 18:42] LABS: Basophils # (A) 0.04 X 10*3/uL (0.00-0.10); Basophils % (A) 0.8 %; Eosinophils # (A) 0.08 X 10*3/uL (0.04-0.35); Eosinophils % (A) 1.7 %; Lymphocytes # (A) 1.78 X 10*3/uL (0.90-5.00); Lymphocytes % (A) 37.1 %; Monocytes # (A) 0.37 X 10*3/uL (0.20-1.00); Monocytes % (A) 7.7 %; Neutrophils # (A) 2.52 X 10*3/uL (1.80-7.70); Neutrophils % (A) 52.5 %
[2024-06-01 19:51] LABS: ALT 23 U/L (8-44); AST 19 U/L (13-35); Albumin 4.6 g/dL (3.8-4.9); Albumin/Globulin Ratio 2.19 Ratio (1.60-3.17); Alkaline Phosphatase 81 U/L (41-126); BUN/Creat Ratio 11.43 Ratio (12.00-20.00); Calcium 10.2 mg/dL (8.7-10.3); Carbon Dioxide 28.4 mmol/L (21.6-31.8); Chloride 101 mmol/L (96-109); Chol/HDL Ratio 1.85 Ratio; Globulin 2.1 g/dL (1.6-3.3); Glucose 95 mg/dL (70-110); LDL Cholesterol,Calculated 60.7 mg/dL (0.0-131.0); Potassium 4.8 mmol/L (3.5-5.5); Sodium 140 mmol/L (135-145); Total Bilirubin 0.3 mg/dL (0.3-1.2); Total Protein 6.7 g/dL (6.2-8.2)
[2024-06-01 21:20] LABS: Microalbumin Creatinine Ratio <46 mg/g Cr (0-30); Urine Creatinine 26.3 mg/dL (28.0-217.0)
== END | disposition home or self-care (01) ==
LOC: LABWHC1 14:01
PROVIDERS: ATTEND Family Medicine
DX: I10 Essential (primary) hypertension (principal); E11.9 Type 2 diabetes mellitus without complications; Z79.899 Other long term (current) drug therapy
CPT/HCPCS: 36415; 80053; 80061; 82043; 82570; 83036; 84443; 85025

== ENCOUNTER → 2024-08-10 | Outpatient (CLI) | payer OTHER ==
--- NOTE | 2024-08-10 14:07 | XR ---
EXAMINATION TYPE: XR thoracic spine 2V DATE OF EXAM: 08/10/2024 CLINICAL HISTORY: pain TECHNIQUE: Frontal, lateral, and swimmer's view of thoracic spine are obtained. COMPARISON: None. FINDINGS: Thoracic spine show satisfactory alignment without evidence of acute fracture or dislocatio n. Vertebral body heights are preserved. Disc spaces are well preserved. Visualized ribs are unrem arkable. IMPRESSION: No acute fracture or dislocation is seen in the thoracic spine. ICD 10 NO FRACTURE, INIT IAL EVALUATION
--- NOTE | 2024-08-10 14:09 | XR ---
EXAMINATION TYPE: XR cervical spine limited DATE OF EXAM: 08/10/2024 CLINICAL HISTORY: pain TECHNIQUE: 3 views of the cervical spine are submitted. COMPARISON: None. FINDINGS: There is satisfactory in alignment without evidence of acute fracture or dislocation. The pre-vertebral soft tissue appears within normal limits. Mild degenerative narrowing C4-5 and C5-6. T he C1-C2 articulation is unremarkable on the open mouth view. IMPRESSION: No acute fracture or dislocation is seen in the cervical spine.
== END | disposition home or self-care (01) ==
LOC: RADXRMAIN 12:50
PROVIDERS: ATTEND Family Medicine
DX: M54.13 Radiculopathy, cervicothoracic region (principal)
CPT/HCPCS: 72040; 72070

== ENCOUNTER → 2025-03-24 | Outpatient (CLI) | payer OTHER ==
[2025-03-24 13:50] LABS: Creatinine,Urine Random 15.3 mg/dL; Protein/Creatinine Ratio,Urine 0.654
[2025-03-24 19:40] LABS: Basophils # (A) 0.06 X 10*3/uL (0.00-0.10); Eosinophils # (A) 0.09 X 10*3/uL (0.04-0.35); Eosinophils % (A) 1.4 %; HCT 42.6 % (37.2-46.3); HGB 13.6 g/dL (12.0-15.0); Lymphocytes # (A) 1.94 X 10*3/uL (0.90-5.00); Lymphocytes % (A) 30.8 %; MCH 30.5 pg (27.0-32.0); MCHC 31.9 g/dL (32.0-37.0); MCV 95.5 FL (80.0-97.0); Monocytes % (A) 7.9 %; NRBC Per 100 WBC 0 X 10*3/uL (0.00-0.01); Neutrophils # (A) 3.68 X 10*3/uL (1.80-7.70); Neutrophils % (A) 58.6 %; Platelet Count 216 X 10*3/uL (140-440); RBC 4.46 X 10*6/uL (4.10-5.20); RDW 13.7 % (11.5-14.5); WBC 6.29 X 10*3/uL (4.50-10.00)
[2025-03-24 20:36] LABS: ALT 17 U/L (8-44); AST 20 U/L (13-35); Albumin 4.4 g/dL (3.8-4.9); Alkaline Phosphatase 105 U/L (41-126); BUN/Creat Ratio 12.57 Ratio (12.00-20.00); Blood Urea Nitrogen 8.8 mg/dL (9.0-27.0); Calcium 9.4 mg/dL (8.7-10.3); Carbon Dioxide 25.9 mmol/L (21.6-31.8); Chloride 99 mmol/L (96-109); Globulin 2.2 g/dL (1.6-3.3); Glucose 106 mg/dL (70-110); Potassium 4.6 mmol/L (3.5-5.5); Sodium 138 mmol/L (135-145); T4, Free (Free Thyroxine) 1.91 ng/dL (0.80-1.80); Total Bilirubin 0.3 mg/dL (0.3-1.2); Total Protein 6.6 g/dL (6.2-8.2)
== END | disposition home or self-care (01) ==
LOC: LABWHC1 11:22
PROVIDERS: ATTEND Family Medicine
DX: I10 Essential (primary) hypertension (principal); E11.9 Type 2 diabetes mellitus without complications; Z79.899 Other long term (current) drug therapy
CPT/HCPCS: 36415; 80053; 82306; 82570; 82607; 82746; 83036; 84156; 84439; 84443; 84481; 85025